=== PATIENT | female | born 1960 | race African-American/Black ===

== ENCOUNTER 2022-01-08 22:09 | Inpatient (IN) | payer MEDICAID, SELFPAY ==
[~2022-01-08] VITALS: Ht 167.6 cm; Wt 63.0 kg
[2022-01-08 22:09] VITALS: BP 118/64
[2022-01-08] MEDS ORDERED: PIPERACILLIN/TAZOBACTAM 3.375 GM in DEXTROSE 5% 50 ML IV ONE (22:25)
[2022-01-08] MEDS ORDERED: VANCOMYCIN 1,000 MG in DEXTROSE 5% 250 ML IV ONE (22:25)
[2022-01-08] MEDS ORDERED: NACL 0.9% 1,000 ML IV SCH (22:25)
--- NOTE | 2022-01-08 22:30 | NUR ---
received pt from EMS and placed to bed 10. pt is a 61 year old female with hx of trach dependence, anemia, sz, COPD, DM, a.fib, anoxic encep, hypothyroid, PEG tube coming [facility] for cc of fever and tachycardia since yesterday. pt is currently undergoing abx therapy at the facility with no relief. pt presents with orozco cath, and has been replaced for sterile urine collection. has PEG tube and intact. presents with upper respiratory wheezes. satting well at 99% on monitor at this time.
--- NOTE | 2022-01-08 22:32 | NUR ---
2220 RECEIVED PT FROM [facility] TRACH TO VENT. PATIENT IS ON PRVC RR 16 VT 300 PEEP 6 FIO2 50% ITIME 0.80. SXNED PT . [facility] AND DENISE USED.
[2022-01-08 22:35] VITALS: BP 126/61
[2022-01-08 22:59] LABS: HEMATOCRIT 24.5 % (36-48); MEAN CORPUSCULAR HEMOGLOBIN 28 pg (27-31); MEAN CORPUSCULAR HGB CONC 33 g/dL (33-37); MEAN CORPUSCULAR VOLUME 84.8 fL (80-94); PLATELET COUNT (AUTO) 326 K/uL (140-450); RED BLOOD CELL COUNT(AUTO) 2.89 MIL/uL (4.20-5.40); RED CELL DISTRIBUTION WIDTH 17.3 % (11.6-13.7)
[2022-01-08] MEDS ORDERED: VANCOMYCIN 1,000 MG VIAL ONE (23:01)
[2022-01-08] MEDS ORDERED: PIPERACILLIN/TAZOBACTAM 3.375 GM VIAL IV ONE (23:01)
[2022-01-08] MEDS ORDERED: BENZ-315 GT (23:02)
[2022-01-08] MEDS ORDERED: ALBU-118 INH (23:02)
[2022-01-08] MEDS ORDERED: FURO-570 GT (23:02)
[2022-01-08] MEDS ORDERED: DIGO0.122 GT (23:02)
[2022-01-08] MEDS ORDERED: VALP-22 GT (23:02)
[2022-01-08] MEDS ORDERED: [UNRECOGNIZED DRUG - CODE] GT (23:02)
[2022-01-08] MEDS ORDERED: FOLI1TAB90 GT (23:02)
[2022-01-08] MEDS ORDERED: LACT10SO40 GT (23:02)
[2022-01-08] MEDS ORDERED: ATOR40TA GT (23:02)
[2022-01-08] MEDS ORDERED: LAMO100T19 GT (23:02)
[2022-01-08] MEDS ORDERED: GABA400C GT (23:02)
[2022-01-08] MEDS ORDERED: INSU100S5 SUBQ (23:02)
[2022-01-08] MEDS ORDERED: LANTUS SUBQ (23:02)
[2022-01-08] MEDS ORDERED: SYN.05 GT (23:02)
[2022-01-08] MEDS ORDERED: LACT1CAP63 GT (23:02)
[2022-01-08] MEDS ORDERED: APIX5TAB GT (23:02)
[2022-01-08 23:04] LABS: WHITE BLOOD COUNT (AUTO) 31.6 K/uL (4.8-10.8)
[2022-01-08 23:15] LABS: PROTHROMBIN TIME 12.3 secs (10.8-13.4)
[2022-01-08 23:28] LABS: EOSINOPHILS % (MANUAL) 1 % (0-4); LYMPHOCYTES % (MANUAL) 2 % (20-46); MONOCYTES % (MANUAL) 2 % (5-12)
[2022-01-08 23:32] LABS: ALBUMIN 1.5 g/dL (3.4-5.0); CARBON DIOXIDE 36.9 mmol/L (21-32); CREATININE 0.6 mg/dL (0.6-1.3); POTASSIUM 3.9 mmol/L (3.5-5.1); TOTAL BILIRUBIN 0.4 mg/dL (0.0-1.0)
--- NOTE | 2022-01-08 23:50 | NUR ---
trach to vent settings; PRVC 28% 400vt 16 r 6 peep
--- NOTE | 2022-01-08 23:56 | NUR ---
covid swab collected.
--- NOTE | 2022-01-09 00:32 | NUR ---
notified Dr. Martinez of low MAP of pt. verbal of NS bolus extra.
[2022-01-09 00:33] LABS: APPEARANCE,URINE SL CLOUDY (CLEAR); BILIRUBIN,URINE NEGATIVE (NEGATIVE); BLOOD, URINE 2+ (NEGATIVE); COLOR,URINE YELLOW (YELLOW); LEUKOCYTE ESTERASE ,URINE TRACE (NEGATIVE); NITRITE, URINE NEGATIVE (NEGATIVE); PH,URINE 8.5 (5.0-9.0); UGLUCOSE NEGATIVE (NEGATIVE)
[2022-01-09] MEDS ORDERED: NACL 0.9% 1,000 ML IV STA (00:50)
[2022-01-09] MEDS ORDERED: NACL 0.9% 1,000 ML IV ONE (00:50)
[2022-01-09 00:57] LABS: RBC,URINE 20-50 /HPF (0-5)
[2022-01-09 00:58] LABS: WBC,URINE 20-60 /HPF (0-5)
--- NOTE | 2022-01-09 01:30 | NUR ---
presents with decubitis sacral ulcer and R LE excoriation. no camera present for wound pics at this time.
--- NOTE | 2022-01-09 01:36 | NUR ---
replaced pt linens and chucks. provided alexia and cleaned pt BM
[2022-01-09] MEDS ORDERED: DOCUSATE 100 MG/10 ML UDC GT PRN (02:40)
[2022-01-09] MEDS ORDERED: ONDANSETRON 4 MG/2 ML VIAL IM/IVP PRN (02:40)
[2022-01-09] MEDS ORDERED: ALBUTEROL SULFATE/IPRATROPIU 3 ML SOL IH PRN (02:40)
[2022-01-09] MEDS ORDERED: DEXTROSE 50% 50 ML SYR IVP PRN (02:40)
[2022-01-09] MEDS ORDERED: KCL 20 MEQ/WATER INJ PREMIX 100 ML IV PRN (02:40)
[2022-01-09] MEDS ORDERED: SODIUM PHOS / POTASSIUM PHOS 1 PKT PDR GT PRN (02:40)
[2022-01-09] MEDS ORDERED: MAGNESIUM OXIDE 400 MG TAB GT PRN (02:40)
[2022-01-09] MEDS ORDERED: MORPHINE SULFATE 2 MG/ML SYR IVP PRN (02:40)
[2022-01-09] MEDS ORDERED: HYDROcodone/APAP 5/325 MG 1 TAB TAB PO PRN (02:40)
--- NOTE | 2022-01-09 03:53 | NUR ---
Ceferino trujillo in EDM - 01/09/22 at 0355 by WILLIE PT TRANSPORTED TO CT AND BACK TO ED W/ NO ADVERSE EVENTS PT TOLERATED TRANSPORT WELL PT REPLACED BACK ON VENT AMBU RE-PLACED AT BEDSIDE VENT REMAINS PLUGGED INTO RED OUTLET W/ ALARMS ON AND AUDIBLE
--- NOTE | 2022-01-09 03:56 | NUR ---
PT TRANSPORTED TO CT AND BACK TO ED W/ NO ADVERSE EVENTS PT TOLERATED TRANSPORT WELL PT REPLACED BACK ON VENT AMBU RE-PLACED AT BEDSIDE VENT REMAINS PLUGGED INTO RED OUTLET W/ ALARMS ON AND AUDIBLE
[2022-01-09] MEDS: VALPROIC ACID 250 MG/5 ML UDC GT SCH ×3 (05:00→22:21)
--- NOTE | 2022-01-09 05:15 | NUR ---
pt remains on same vent settings. linens changed again per BM
[2022-01-09 07:10] VITALS: BP 108/48
[2022-01-09] MEDS: ALBUTEROL SULFATE/IPRATROPIU 3 ML SOL IH SCH ×3 (07:10→19:51)
[2022-01-09] MEDS: NACL 0.9% 1,000 ML IV SCH ×2 (07:12→21:58)
[2022-01-09] MEDS: LEVOTHYROXINE 0.05 MG TAB GT SCH (07:13)
--- NOTE | 2022-01-09 07:30 | NUR ---
RECEIVED REPORT FROM CIPRIANO GAO. ASSUMED CARE AT THIS TIME.
[2022-01-09] MEDS: BLOOD GLUCOSE MONITORING 1 DEV DEV FS SCH ×4 (07:39→22:16)
[2022-01-09] MEDS ORDERED: FOLIC ACID 1 MG TAB GT SCH (09:00)
--- NOTE | 2022-01-09 09:00 | NUR ---
PATIENT LAYING IN BED WITH EYES OPEN, TRACKING ME WHILE IN ROOM. ON BEDSIDE MIG WELDER, WILL CONTINUE TO MONITOR.
[2022-01-09] MEDS: LACTULOSE 20 GM/30 ML UDC GT SCH (09:29)
[2022-01-09] MEDS: BENZTROPINE 1 MG TAB GT SCH ×2 (09:30→22:22)
--- NOTE | 2022-01-09 09:30 | NUR ---
PATIENT HAS BEEN SCREENED AND CATEGORIZED HIGH NUTRITION RISK. PATIENT WILL BE SEEN WITHIN 1-2 DAYS OF ADMISSION. 01/09/22-01/10/22 CONSULT RECEIVED FOR TUBE FEEDING MARQUIS ALCANTAR RD
[2022-01-09] MEDS: GABAPENTIN 100 MG CAP GT SCH ×3 (09:31→17:16)
[2022-01-09] MEDS: FUROSEMIDE 40 MG TAB GT SCH (09:31)
[2022-01-09] MEDS: PANTOPRAZOLE 40 MG INJ VIAL IVP SCH (09:32)
[2022-01-09] MEDS: ASCORBIC ACID 500 MG/5 ML ORASYR GT SCH (09:32)
[2022-01-09] MEDS: DIGOXIN 0.125 MG TAB GT SCH (09:33)
[2022-01-09] MEDS: APIXABAN 2.5 MG TAB GT SCH ×2 (10:02→22:22)
[2022-01-09] MEDS: LACTOBACILLUS RHAMNOSUS GG 1 EACH CAP GT SCH (10:02)
[2022-01-09] MEDS: INSULIN LANTUS 100 UNITS/ML 10 ML VIAL SUBQ SCH ×2 (10:55→22:23)
--- NOTE | 2022-01-09 11:00 | NUR ---
800 CC OF DARK YELLOW URINE DRAINED FROM PATIENTS WEEKS BAG.
[2022-01-09 11:35] VITALS: BP 92/38
--- NOTE | 2022-01-09 11:56 | NUR ---
01/09/22 RD INITIAL ASSESSMENT COMPLETED PLEASE REFER TO NUTRITION ASSESSMENT UNDER CARE ACTIVITY FOR ESTIMATED NUTRITIONAL NEEDS. 1. RECOMMENDED GLUCERNA 1.2 WITH A GOAL RATE OF 50 ML/HR -FWF: 150 ML Q6H OR PER MD -START AT 20 ML/HR AND INCREASE BY 10 ML Q4H TOLERATED -WILL PROVIDE 1440 KCAL, 72 GM PROTEIN AND 1566 ML FREE WATER, MEETING ESTIMATED NUTRITION NEEDS 2. MONITOR NUTRITION-RELATED LABS AND GASTRIC RESIDUALS 3. RD TO FOLLOW-UP 2-3 DAYS, HIGH RISK DENNY ALCANTAR RD Addendum: 01/10/22 at [address] RECEIVED CONSULT FOR WOUNDS AND PRESSURE INJURY ON 01/10/22. WILL ADD DEACON BID PER RD PROTOCOL.
[2022-01-09 12:57] VITALS: BP 103/46
--- NOTE | 2022-01-09 13:15 | NUR ---
DR. QUESADA BEDSIDE EVALUATING PATIENT, GIVEN VERBAL ORDER TO INCREASE NS MAINTENANCE FLUIDS TO 100 ML/HR.
[2022-01-09 17:17] VITALS: BP 97/46
--- NOTE | 2022-01-09 17:48 | NUR ---
PATIENT LAYING IN BED WITH EYES OPEN, TRACKING ME WHILE IN ROOM. PATIENT ON SAME VENT SETTINGS, ON BEDSIDE IT ADMINISTRATOR, WILL CONTINUE TO MONITOR.
[2022-01-09 17:55] VITALS: BP 104/40
--- NOTE | 2022-01-09 18:33 | NUR ---
200cc OF DARK YELLOW URINE EMPTIED FROM PATIENTS WEEKS BAG.
--- NOTE | 2022-01-09 19:35 | NUR ---
Pt report given to CIPRIANO GAO. Transfer of care at this time.
--- NOTE | 2022-01-09 19:59 | NUR ---
report given to Jerica COTA.
[2022-01-09 22:01] VITALS: BP 99/41
[2022-01-09] MEDS: ATORVASTATIN 20 MG TAB GT SCH (22:22)
[2022-01-10] MEDS ORDERED: VANCOMYCIN PER PHARMACY MC PRN (00:35)
[2022-01-10 01:14] VITALS: BP 93/42
[2022-01-10] MEDS ORDERED: PIPERACILLIN/TAZOBACTAM 3.375 GM in DEXTROSE 5% 50 ML IV SCH (01:20)
[2022-01-10] MEDS ORDERED: PIPERACILLIN/TAZOBACTAM 3.375 GM VIAL IV ONE ×2 (01:20→05:17)
[2022-01-10 04:18] VITALS: BP 94/46
[2022-01-10] MEDS: BLOOD GLUCOSE MONITORING 1 DEV DEV FS SCH ×4 (05:15→20:14)
[2022-01-10] MEDS ORDERED: CRUSHER, PILL MC ONE (05:18)
[2022-01-10] MEDS: PIPERACILLIN/TAZOBACTAM 3.375 GM in DEXTROSE 5% 50 ML IV SCH ×4 (05:25→23:00)
[2022-01-10] MEDS: VALPROIC ACID 250 MG/5 ML UDC GT SCH ×3 (05:25→20:17)
[2022-01-10] MEDS: LEVOTHYROXINE 0.05 MG TAB GT SCH (05:35)
[2022-01-10] MEDS: ALBUTEROL SULFATE/IPRATROPIU 3 ML SOL IH SCH ×3 (07:15→19:50)
--- NOTE | 2022-01-10 07:30 | NUR ---
RECEIVED REPORT FROM ARTS THERAPIST NURSE. PT STABLE
[2022-01-10 07:54] LABS: ANION GAP 12.2 (8-16); CARBON DIOXIDE 25.5 mmol/L (21-32); CREATININE 0.5 mg/dL (0.6-1.3)
[2022-01-10 07:55] LABS: BASOPHILS % (AUTO) 0.1 % (0.0-2.0); EOSINOPHILS # (AUTO) 0.1 K/uL (0-0.4); EOSINOPHILS % (AUTO) 0.3 % (0.0-4.0); LYMPHOCYTES # (AUTO) 0.6 K/uL (2.5-16.5); LYMPHOCYTES % (AUTO) 4.1 % (20.5-51.1); MEAN CORPUSCULAR HEMOGLOBIN 28 pg (27-31); MEAN CORPUSCULAR HGB CONC 33 g/dL (33-37); MEAN CORPUSCULAR VOLUME 84.3 fL (80-94); MONOCYTES # (AUTO) 0.6 K/uL (0.8-1.0); MONOCYTES % (AUTO) 3.8 % (1.7-9.3); NEUTROPHILS # (AUTO) 14.5 K/uL (1.8-7.7); NEUTROPHILS % (AUTO) 91.7 % (42.2-75.2); PLATELET COUNT (AUTO) 273 K/uL (140-450); RED BLOOD CELL COUNT(AUTO) 2.36 MIL/uL (4.20-5.40); RED CELL DISTRIBUTION WIDTH 17.3 % (11.6-13.7); WHITE BLOOD COUNT (AUTO) 15.8 K/uL (4.8-10.8)
[2022-01-10 08:00] VITALS: BP 102/46
[2022-01-10 08:17] LABS: HEMATOCRIT 19.9 % (36-48); HEMOGLOBIN 6.5 g/dL (12.0-16.0)
[2022-01-10 08:27] LABS: POTASSIUM 2.7 mmol/L (3.5-5.1)
[2022-01-10] MEDS: LACTULOSE 20 GM/30 ML UDC GT SCH (08:52)
[2022-01-10] MEDS: PANTOPRAZOLE 40 MG INJ VIAL IVP SCH (08:52)
[2022-01-10] MEDS: FUROSEMIDE 40 MG TAB GT SCH (08:54)
[2022-01-10] MEDS: ASCORBIC ACID 500 MG/5 ML ORASYR GT SCH (08:54)
[2022-01-10] MEDS: LACTOBACILLUS RHAMNOSUS GG 1 EACH CAP GT SCH (08:54)
[2022-01-10] MEDS: GABAPENTIN 100 MG CAP GT SCH ×3 (08:54→17:00)
[2022-01-10] MEDS: FOLIC ACID 1 MG TAB GT SCH (08:55)
[2022-01-10] MEDS: APIXABAN 2.5 MG TAB GT SCH (08:56)
[2022-01-10] MEDS: INSULIN LANTUS 100 UNITS/ML 10 ML VIAL SUBQ SCH ×2 (08:56→20:15)
[2022-01-10] MEDS: DIGOXIN 0.125 MG TAB GT SCH (08:56)
[2022-01-10] MEDS: BENZTROPINE 1 MG TAB GT SCH ×2 (08:57→20:17)
[2022-01-10] MEDS: VANCOMYCIN 1,000 MG in DEXTROSE 5% 250 ML IV SCH (09:55)
--- NOTE | 2022-01-10 10:20 | NUR ---
PT STABLE. NO S/S OF DISTRESS. PT CLEANED AND CHANGED. BREATHING SYMMETRICAL. ALL SAFETY MEASURES IN PLACE
[2022-01-10 12:00] VITALS: BP 92/88
[2022-01-10] MEDS: NACL 0.9% 1,000 ML IV SCH ×2 (12:07→23:14)
--- NOTE | 2022-01-10 13:50 | NUR ---
PT STILL OFF TUBE FEEDING PER RADIOLOGY. RESIDUAL 0. BG 145, NO COVERAGE NEEDED.
[2022-01-10 16:00] VITALS: BP 91/44
--- NOTE | 2022-01-10 17:00 | NUR ---
PT CLEANED AND CHANGED. WOUND CARE PROVIDED. PT STABLE. ALL SAFETY MEASURES IN PLACE. PT RIGHT FOREARM IV PULLED OUT DURING RADIOLOGY PROCEDURE.
--- NOTE | 2022-01-10 19:11 | NUR ---
ENDORSED PT TO PRESTIDIGITATOR NURSE
--- NOTE | 2022-01-10 19:12 | NUR ---
RECEIVED BEDSIDE REPORT FROM DAY RN. PT IS APHASIC. OBSERVED LAYING IN BED WITH EYES OPEN NOT TRACKING NURSE. RESPIRATIONS ARE EQUAL AND UNLABORED ON TRACH TO VENT. VENT SETTINGS: AC/PRVC 28%,16, 400 +5 SAT WELL 99% HR 102. IV ON RW22G NS INFUSING AT 60ML/H AND R SOLER 20G SL. SKIN IS NOT INTACT SACRAL ULCER DRESSING IS C/D/I. R HEEL DTI GRAPHICS SOFTWARE ENGINEER. WEEKS IN PLACE DRAINING YELLOW URINE. PT ON GTUBE FEEDING INFUSING PER ORDERS. POC REVIEWED. PT UNABLE TO COMPREHEND. SAFETY MEASURES ARE IN PLACE. WILL CONTINUE TO MONITOR.
[2022-01-10 20:00] VITALS: BP 102/52
[2022-01-10] MEDS: INSULIN LISPRO SLIDING SCALE 100 UNITS/ML VIAL SUBQ PRN (20:16)
[2022-01-10] MEDS: ATORVASTATIN 20 MG TAB GT SCH (20:17)
--- NOTE | 2022-01-10 20:17 | NUR ---
PT WITH 5CC OF GASTRIC RESIDUALS. NICK MEDS GIVEN PER ORDERS. VSS. ORAL CARE PROVIDED BY RT STUDENT. BS 170 NICK LANTUS AND HUMALOG GIVEN PER SLIDING SCALE. ALL NEEDS MET. WILL CONTINUE TO MONITOR.
--- NOTE | 2022-01-10 21:00 | NUR ---
OBTAIN TELEPHONE CONSENT FROM HOMERO FRANCO PT'S BROTHER. VERIFIED WITH OTHER RN. ALL QUESTIONS AND CONCERNS ADDRESSED. PAGED DR QUESADA PER DOCTOR DOES NOT HAVE FAX ONLY DURING OFFICE HOURS. OK TO GIVE BLOOD TOMORROW AFTER OBTAINING CONSENT FROM .
--- NOTE | 2022-01-10 22:24 | NUR ---
PT OBSERVED RESTING IN BED WITH EYES CLOSED. NO S/SX OF DISTRESS. WILL CONTINUE TO MONITOR
[2022-01-10] MEDS ORDERED: POTASSIUM CHLORIDE 40 MEQ, LIDOCAINE MPF 1% 25 MG in NACL 0.9% 250 ML IV SCH (23:30)
--- NOTE | 2022-01-10 23:40 | NUR ---
PAGED DR QUESADA TO CLARIFY K RIDER ORDER. CURRENTLY PHARMACY NOT AVAILABLE TO MIX K RIDER WITH LIDOCAINE. PER MD ORDER ADDITIONAL 20 MEQ K RIDER X1. AND WILL REPEAT LABS IN AM.
[2022-01-10] MEDS ORDERED: KCL 20 MEQ/WATER INJ PREMIX 100 ML IV SCH (23:45)
[2022-01-11] VITALS (8 sets, daily range): BP systolic 96–119; BP diastolic 41–80
--- NOTE | 2022-01-11 00:38 | NUR ---
VITAL SIGNS ARE WITHIN NORMAL LIMITS. ALL NEEDS MET. CALL LIGHT IS WITHIN REACH. WILL CONTINUE TO MONITOR.
--- NOTE | 2022-01-11 02:08 | NUR ---
ROUNDS MADE. PT OBSERVED LAYING IN BED WITH EYES CLOSED APPEARS TO BE ASLEEP. CHEST RISE AND FALL NOTED. CALL LIGHT IS WITHIN REACH.
[2022-01-11] MEDS: VANCOMYCIN 1,000 MG in DEXTROSE 5% 250 ML IV SCH (03:31)
--- NOTE | 2022-01-11 04:00 | NUR ---
VITAL SIGNS ARE WITHIN NORMAL LIMITS. ORAL CARE PROVIDED. ALL SAFETY MEASURES ARE IN PLACE. WILL CONTINUE TO MONITOR.
[2022-01-11] MEDS: PIPERACILLIN/TAZOBACTAM 3.375 GM in DEXTROSE 5% 50 ML IV SCH ×2 (05:49→12:05)
[2022-01-11] MEDS: VALPROIC ACID 250 MG/5 ML UDC GT SCH ×3 (05:49→21:37)
[2022-01-11] MEDS: LEVOTHYROXINE 0.05 MG TAB GT SCH (05:50)
--- NOTE | 2022-01-11 06:28 | NUR ---
BS 127 NO COVERAGE NEEDED. PT WAS CLEANED AND REPOSITION FOR COMFORT WITH ASSISTANCE OF APARTMENT MAINTENANCE TECHNICIAN. WILL CONTINUE TO MONITOR.
[2022-01-11] MEDS: BLOOD GLUCOSE MONITORING 1 DEV DEV FS SCH ×4 (06:30→21:00)
--- NOTE | 2022-01-11 07:21 | NUR ---
PATIENT IS STABLE. WILL ENDORSE TO DAY RN.
--- NOTE | 2022-01-11 07:25 | NUR ---
RECEIVED BEDSIDE REPORT FROM RETAIL RECEIVING CLERK NURSE FOR CONTINUITY OF CARE. PT IS APHASIC. OBSERVED LAYING IN BED WITH EYES OPEN NOT TRACKING NURSE. RESPIRATIONS ARE EQUAL AND UNLABORED ON TRACH TO VENT. VENT SETTINGS: AC/PRVC 28%,16, 400 +5 SAT WELL 99%. IV ON LFA 18 NS INFUSING AT 60ML/H AND LH 20G SL. SKIN IS NOT INTACT SACRAL ULCER DRESSING IS C/D/I. R HEEL DTI IT INFRASTRUCTURE ARCHITECT. WEEKS IN PLACE DRAINING YELLOW URINE. TUBE FEEDING ON HOLD DUE TO SURGERY TODAY. POC REVIEWED. PT UNABLE TO COMPREHEND. SAFETY MEASURES ARE IN PLACE. WILL CONTINUE TO MONITOR.
[2022-01-11] MEDS: ALBUTEROL SULFATE/IPRATROPIU 3 ML SOL IH SCH ×3 (07:33→19:35)
[2022-01-11 07:59] LABS: CARBON DIOXIDE 26.6 mmol/L (21-32); CREATININE 0.6 mg/dL (0.6-1.3); POTASSIUM 3.6 mmol/L (3.5-5.1)
[2022-01-11] MEDS: BENZTROPINE 1 MG TAB GT SCH ×2 (08:08→21:36)
[2022-01-11] MEDS: LACTOBACILLUS RHAMNOSUS GG 1 EACH CAP GT SCH (08:08)
[2022-01-11] MEDS: LACTULOSE 20 GM/30 ML UDC GT SCH (08:08)
[2022-01-11] MEDS: DIGOXIN 0.125 MG TAB GT SCH (08:09)
[2022-01-11] MEDS: ASCORBIC ACID 500 MG/5 ML ORASYR GT SCH (08:09)
[2022-01-11] MEDS: FOLIC ACID 1 MG TAB GT SCH (08:09)
[2022-01-11] MEDS: GABAPENTIN 100 MG CAP GT SCH ×3 (08:09→16:15)
[2022-01-11] MEDS: FUROSEMIDE 40 MG TAB GT SCH (08:09)
[2022-01-11] MEDS: INSULIN LANTUS 100 UNITS/ML 10 ML VIAL SUBQ SCH ×2 (09:00→21:47)
[2022-01-11] MEDS: PANTOPRAZOLE 40 MG INJ VIAL IVP SCH (09:05)
--- NOTE | 2022-01-11 09:55 | NUR ---
ALL SCHEDULED MEDS GIVEN. PT IS STABLE. NO DISTRESS NOTED. WILL CONTINUE TO MONITOR.
--- NOTE | 2022-01-11 11:40 | NUR ---
BEGAN 1 UNIT OF BLOOD TRANSFUSION. PRE VITAL SIGNS STABLE. NO DISTRESS NOTED. WILL CONTINUE TO MONITOR.
--- NOTE | 2022-01-11 11:40 | NUR ---
WOUND CARE EVALUATION NOTE: SKIN ASSESSMENT DONE WITH THIS 61 Y/O PT. ADMITTED WITH MULTIPLE PRESSURE INJURY, PER PRIMARY RN, PT SCHEDULE FOR DEBRIDEMENT THIS AFTERNOON. POC DISCUSSED WITH PRIMARY RN. INTEGUMENTARY: TRACH AND G SITE VINAY-STOMA SKIN DRY AND INTACT. -PRESSURE INJURY SACRALCOCCYX STAGE 4 WITH [id number] 40% GRANULATING TISSUE, 60% SCATTER THIN MILLAN/YELLOW SLOUGH TISSUE TO WOUND BED, UNDERMINING TO 9-3 OCLOCK 0.5CM, WOUND EDGE FLAT, WOUND BED MODERATE AMOUNT PURULENT DRAINAGE, MILD ODOR, VINAY-WOUND SKIN MOIST, THIN AND EASILY TO TORN. -PRESSURE INJURY STAGE 2 TO RIGHT HEEL 2X2CM SUPERFICIAL DEPTH, WOUND BED 100% RED GRANULATING TISSUE ,NO ODOR, VINAY WOUND SKIN DRY CRACKING SKIN INDICATED FURTHER DAMAGE. RECOMMENDATIONS: -CLEANSE SACRALCOCCYX WITH NS, PAT DRY, PACK LOOSELY WITH ONE PIECE KERLIX ROLL MOIST WITH HYDROGEL TO UNDERMINING AND WOUND BED AND COVER WITH DRY DRESSING CHANGE DAILY AND PRN IF SOILING, OFFLOADING AREAS -CLEANSE RIGHT HEEL WITH NS, PAT DRY, APPLY ADAPTIC DRESSING AND COVER WITH FOAM DRESSING QD AND PRN IF SOILING -APPLY HYDRAGUARD TO GROINS AND PERINEUM BID -ASSESS AND MONITOR SKIN CONDITION DURING POSITION CHANGE -OFFLOAD BILATERAL HEELS BY PLACING PILLOWS UNDER CALVES AT ALL TIMES, UNLESS OTHERWISE CONTRAINDICATED -PRESSURE REDISTRIBUTION SURFACE AND OFFLOADING SACRALCOCCYX -KEEP SKIN CLEAN AND DRY AT ALL TIMES. -CONTINUE TO FOLLOW RD RECOMMENDATIONS
--- NOTE | 2022-01-11 12:02 | NUR ---
BLOOD GLUCOSE CHECK WAS 74. NO INSULIN COVERAGE NEEDED
[2022-01-11 15:26] LABS: BASOPHILS % (AUTO) 0.2 % (0.0-2.0); EOSINOPHILS # (AUTO) 0.4 K/uL (0-0.4); EOSINOPHILS % (AUTO) 2.3 % (0.0-4.0); HEMATOCRIT 23.1 % (36-48); HEMOGLOBIN 7.8 g/dL (12.0-16.0); LYMPHOCYTES # (AUTO) 0.9 K/uL (2.5-16.5); LYMPHOCYTES % (AUTO) 5.5 % (20.5-51.1); MEAN CORPUSCULAR HEMOGLOBIN 28 pg (27-31); MEAN CORPUSCULAR HGB CONC 34 g/dL (33-37); MEAN CORPUSCULAR VOLUME 83.7 fL (80-94); MONOCYTES # (AUTO) 0.5 K/uL (0.8-1.0); MONOCYTES % (AUTO) 3.5 % (1.7-9.3); NEUTROPHILS % (AUTO) 88.5 % (42.2-75.2); PLATELET COUNT (AUTO) 317 K/uL (140-450); RED BLOOD CELL COUNT(AUTO) 2.76 MIL/uL (4.20-5.40); RED CELL DISTRIBUTION WIDTH 16.9 % (11.6-13.7); WHITE BLOOD COUNT (AUTO) 15.8 K/uL (4.8-10.8)
--- NOTE | 2022-01-11 16:09 | NUR ---
01/11/22 RD F/U ASSESSMENT COMPLETED PLEASE REFER TO NUTRITION ASSESSMENT UNDER CARE ACTIVITY FOR ESTIMATED NUTRITIONAL NEEDS. 1. WHEN/IF MEDICALLY APPROPRIATE, CONTINUE GLUCERNA 1.2 WITH A GOAL RATE OF 50 ML/HR -FWF: 150 ML Q6 HR OR PER MD -WILL PROVIDE 1440 KCAL, 72 GM PROTEIN AND 1566 ML FREE WATER, MEETING ESTIMATED 98% OF KCAL NEEDS AND 97% OF PROTEIN NEEDS. 2. CONTINUE DEACON BID PER RD PROTOCOL. 3. MONITOR NUTRITION-RELATED LABS AND GASTRIC RESIDUALS 4. RD TO FOLLOW-UP 2-3 DAYS, HIGH RISK DARION BERG RD
--- NOTE | 2022-01-11 16:17 | NUR ---
BLOOD GLUCOSE CHECK WAS 94. NO INSULIN COVERAGE NEEDED
--- NOTE | 2022-01-11 17:20 | NUR ---
DR. STRONG AT PATIENT'S BEDSIDE.
--- NOTE | 2022-01-11 19:15 | NUR ---
DR. STRONG AT BEDSIDE BEGIN DEBRIDEMENT PROCEDURE.
[2022-01-11] MEDS ORDERED: LIDOCAINE MPF 1% 5 ML ONE (19:20)
[2022-01-11] MEDS ORDERED: LIDOCAINE 2% 1000 MG/50 ML VIAL INJ ONE (19:20)
[2022-01-11] MEDS ORDERED: LIDOCAINE MPF 1% 10 MG/ML VIAL INJ ONE (19:25)
--- NOTE | 2022-01-11 19:42 | NUR ---
ENDORSED TO DESIGN MAKER NURSE FOR CONTINUITY OF CARE. PT IS STABLE.
--- NOTE | 2022-01-11 19:45 | NUR ---
RECEIVED BEDSIDE REPORT FROM DAY SHIFT NURSE FOR CONTINUITY OF CARE. PT IS APHASIC. DR STRONG AT BEDSIDE, DEBRIDEMENT PROCEDURE ONGOING. RESPIRATIONS ARE EQUAL AND UNLABORED ON TRACH TO VENT. VENT SETTINGS: AC/PRVC 28%,16, 400 +5 SAT 100%. IV ON LHAND 20 NS INFUSING AT 60ML/H AND LFA G18 SL. WEEKS IN PLACE DRAINING YELLOW URINE. TUBE FEEDING ON HOLD DUE TO SURGERY TODAY. SAFETY MEASURES ARE IN PLACE. WILL CONTINUE TO MONITOR.
--- NOTE | 2022-01-11 21:00 | NUR ---
SCHEDULED MEDS GIVEN. PT IS STABLE. NO DISTRESS NOTED. WILL CONTINUE TO MONITOR.
[2022-01-11] MEDS: NACL 0.9% 1,000 ML IV SCH (21:20)
[2022-01-11] MEDS: MEROPENEM 1,000 MG in NACL 0.9% 50 ML IV SCH (21:36)
[2022-01-11] MEDS: ATORVASTATIN 20 MG TAB GT SCH (21:36)
[2022-01-12] VITALS (7 sets, daily range): BP systolic 115–153; BP diastolic 61–89
--- NOTE | 2022-01-12 | NUR ---
VITAL SIGNS ARE STABLE. ORAL CARE PROVIDED. ALL SAFETY MEASURES ARE IN PLACE. WILL CONTINUE TO MONITOR.
[2022-01-12] MEDS: HYDRAGUARD CREAM TP SCH ×2 (01:13→12:05)
--- NOTE | 2022-01-12 02:53 | NUR ---
PT ASLEEP. PT REPOSITIONED. PT TOLERATED WELL.BREATHING EQUAL AND UNLABORED. ALL PRECAUTIONS IN PLACE. WILL CONTINUE TO MONITOR.
[2022-01-12] MEDS: VALPROIC ACID 250 MG/5 ML UDC GT SCH ×3 (05:42→21:44)
[2022-01-12] MEDS: MEROPENEM 1,000 MG in NACL 0.9% 50 ML IV SCH ×3 (05:42→21:14)
[2022-01-12] MEDS: LEVOTHYROXINE 0.025 MG TAB GT SCH (05:42)
--- NOTE | 2022-01-12 05:45 | NUR ---
SCHEDULED MEDICATIONS GIVEN. PT TOLERATED WELL. ALL PRECAUTIONS IN PLACE. WILL CONTINUE TO MONITOR.
[2022-01-12] MEDS: BLOOD GLUCOSE MONITORING 1 DEV DEV FS SCH ×4 (06:23→21:28)
--- NOTE | 2022-01-12 06:37 | NUR ---
PT IS STABLE. NO ACUTE EVENTS THROUGHOUT THE NIGHT. NO S/SX OF DISTRESS OF THIS MOMENT. DENIES PAIN. ALL NEEDS ATTENDED. CALL LIGHT WITHIN REACH. ALL SAFETY PRECAUTIONS IN PLACE.WILL ENDORSE TO AM SHIFT NURSE.
[2022-01-12] MEDS: ALBUTEROL SULFATE/IPRATROPIU 3 ML SOL IH SCH ×3 (07:26→19:00)
--- NOTE | 2022-01-12 07:26 | NUR ---
RECEIVED ON A [employer] R860 VENTILATOR WITH COMPRESSOR ON PLUGGED INTO RED OUTLET TOLERATING WELL WITHOUT ADVERSE REACTIONS NOTED TO A PORTEX DCT #8 AIRWAY SECURED WITH A EDGAR TRACH TIE CUFF PRESSURE CHECKED NOTED AMBU BAG AT BEDSIDE LOC AWAKE EQUAL CHEST RISE DEEP TRACHEAL SUCTION FOR COPIOUS SEMI THICK PALE YELLOW SECRETIONS AIRWAY PATENT
--- NOTE | 2022-01-12 07:40 | NUR ---
RECEIVED BEDSIDE REPORT FROM PRODUCTION REPAIRER NURSE FOR CONTINUITY OF CARE. PT IS APHASIC. OBSERVED LAYING IN BED WITH EYES OPEN NOT TRACKING NURSE. RESPIRATIONS ARE EQUAL AND UNLABORED ON TRACH TO VENT. VENT SETTINGS: AC/PRVC 28%,16, 400 +5 SAT WELL 99%. IV ON LFA 18 NS INFUSING AT 60ML/H AND LH 20G SL. SKIN IS NOT INTACT. S/P DEBRIDEMENT ON SACRAL ULCER. SACRAL ULCER DRESSING IS C/D/I. R HEEL DTI MENG. WEEKS IN PLACE DRAINING YELLOW URINE. POC REVIEWED. PT UNABLE TO COMPREHEND. SAFETY MEASURES ARE IN PLACE. WILL CONTINUE TO MONITOR.
[2022-01-12] MEDS: ASCORBIC ACID 500 MG/5 ML ORASYR GT SCH (09:00)
[2022-01-12] MEDS: FOLIC ACID 1 MG TAB GT SCH (09:00)
[2022-01-12] MEDS: LACTOBACILLUS RHAMNOSUS GG 1 EACH CAP GT SCH (09:00)
[2022-01-12] MEDS: FUROSEMIDE 40 MG TAB GT SCH (09:00)
[2022-01-12] MEDS: GABAPENTIN 100 MG CAP GT SCH ×3 (09:00→17:15)
[2022-01-12] MEDS: LACTULOSE 20 GM/30 ML UDC GT SCH (09:00)
[2022-01-12] MEDS: INSULIN LANTUS 100 UNITS/ML 10 ML VIAL SUBQ SCH ×2 (09:00→21:00)
[2022-01-12] MEDS: DIGOXIN 0.125 MG TAB GT SCH (09:00)
[2022-01-12] MEDS: BENZTROPINE 1 MG TAB GT SCH ×2 (09:00→21:44)
--- NOTE | 2022-01-12 09:30 | NUR ---
CHECKED ON PT. PT IS STABLE. NO DISTRESS NOTED. WILL CONTINUE TO MONITOR.
[2022-01-12] MEDS: PANTOPRAZOLE 40 MG INJ VIAL IVP SCH (09:45)
--- NOTE | 2022-01-12 10:51 | NUR ---
RESTING WELL GOOD CHEST RISE AIRWAY PATENT
--- NOTE | 2022-01-12 10:52 | NUR ---
RT AT BEDSIDE
[2022-01-12] MEDS: NON ADHERENT DRESSING TP SCH (12:05)
[2022-01-12] MEDS: SKINTEGRITY HYDROGEL TP SCH (12:05)
--- NOTE | 2022-01-12 12:22 | NUR ---
BLOOD GLUCOSE IS 78. NO INSULIN COVERAGE NEEDED
--- NOTE | 2022-01-12 13:25 | NUR ---
RT AT BEDSIDE.
--- NOTE | 2022-01-12 13:26 | NUR ---
RESTING COMFORTABLY GOOD CHEST RISE DEEP TRACHEAL SUCTION FOR LARGE SEMI THICK PALE YELLOW SECRETIONS AIRWAY PATENT
[2022-01-12] MEDS: NACL 0.9% 1,000 ML IV SCH (13:41)
--- NOTE | 2022-01-12 17:15 | NUR ---
BLOOD SUGAR CHECK WAS 80. NO INSULIN COVERAGE NEEDED.
--- NOTE | 2022-01-12 19:38 | NUR ---
ENDORSED TO LICENSED NUCLEAR CONTROL ROOM OPERATOR NURSE FOR CONTINUITY OF CARE. PT IS STABLE
--- NOTE | 2022-01-12 19:39 | NUR ---
RECEIVED REPORT FROM DAY SHIFT NURSE FOR CONTINUITY OF CARE.PT IS STABLE.
--- NOTE | 2022-01-12 21:00 | NUR ---
[facility] MED ADMINISTRATION PER MD ORDER. PT TOLERATED MEDS WELL. NO RESIDUAL NOTED. FLUSHED WITH 10CC BEFORE AND AFTER ADMINISTRATION. ORAL CARE PERFORMED. BS= 92 NO INSULIN COVERAGE NEEDED. PT REPOSITIONED. ALL SAFETY MEASURES IN PLACE.
[2022-01-12] MEDS: ATORVASTATIN 20 MG TAB GT SCH (21:44)
[2022-01-13] MEDS: HYDRAGUARD CREAM TP SCH ×2 (00:26→12:10)
[2022-01-13 01:00] VITALS: BP 129/64
[2022-01-13 04:00] VITALS: BP 129/64
[2022-01-13] MEDS: MEROPENEM 1,000 MG in NACL 0.9% 50 ML IV SCH ×3 (04:10→21:22)
[2022-01-13] MEDS: VALPROIC ACID 250 MG/5 ML UDC GT SCH ×3 (04:10→21:37)
--- NOTE | 2022-01-13 05:20 | NUR ---
LAB UNABLE TO DRAW AM LABS AFTER 3 TRIES. BOTH HANDS ARE SWOLLEN. LEGS CONTRACTED. ENDORSE TO DAY SHIFT NURSE TO FOLLOW UP WITH DR QUESADA ABOUT A MIDLINE PLACEMENT?
[2022-01-13] MEDS: NACL 0.9% 1,000 ML IV SCH ×2 (06:40→23:20)
[2022-01-13] MEDS: BLOOD GLUCOSE MONITORING 1 DEV DEV FS SCH ×4 (06:48→21:21)
[2022-01-13] MEDS: LEVOTHYROXINE 0.025 MG TAB GT SCH (06:59)
[2022-01-13] MEDS: ALBUTEROL SULFATE/IPRATROPIU 3 ML SOL IH SCH ×3 (07:00→20:10)
--- NOTE | 2022-01-13 07:00 | NUR ---
RECEIVED ON A [employer] R860 VENTILATOR PLUGGED INTO RED OUTLET TOLERATING WELL WITHOUT COMPLICATIONS NOTED TO A PORTEX DCT #8 AIRWAY SECURED WITH A EDGAR TRACH TIE CUFF PRESSURE CHECKED NOTED AMBU BAG AT BEDSIDE RESTING COMFORTABLY EQUAL CHEST RISE DEEP TRACHEAL SUCTION FOR LARGE SEMI THICK YELLOW SECRETIONS AIRWAY PATENT
--- NOTE | 2022-01-13 07:29 | NUR ---
ENDORSED PT REPORT TO AM NURSE FOR CONTINUITY OF CARE. BS= 130 NO INSULIN COVERAGE NEEDED. ALL SAFETY MEASURES IN PLACE.
--- NOTE | 2022-01-13 07:30 | NUR ---
RECEIVED REPORT FROM BATT MACHINE OPERATOR NURSE FOR CONTINUITY OF CARE, POC DISCUSSED. RT AT BEDSIDE, STABLE TRACH TO VENT SATING AT 99%. PT ON TELE MONITOR SHOWING SR. PT HAS A WEEKS. S/P DEBRIDEMENT OF SACRAL WOUND ON BY DR STRONG. RUNNING NS @60 ON LEFT HAND 20G. ALL SAFETY MEASURES IN PLACE, CALL LIGHT WITHIN REACH. WILL CONTINUE TO MONITOR.
[2022-01-13 08:00] VITALS: BP 115/59
[2022-01-13] MEDS: GABAPENTIN 100 MG CAP GT SCH ×3 (09:02→16:50)
[2022-01-13] MEDS: LACTOBACILLUS RHAMNOSUS GG 1 EACH CAP GT SCH (09:02)
[2022-01-13] MEDS: FUROSEMIDE 40 MG TAB GT SCH (09:02)
[2022-01-13] MEDS: ASCORBIC ACID 500 MG/5 ML ORASYR GT SCH (09:03)
[2022-01-13] MEDS: BENZTROPINE 1 MG TAB GT SCH ×2 (09:03→21:37)
[2022-01-13] MEDS: FOLIC ACID 1 MG TAB GT SCH (09:03)
[2022-01-13] MEDS: DIGOXIN 0.125 MG TAB GT SCH (09:03)
[2022-01-13] MEDS: PANTOPRAZOLE 40 MG INJ VIAL IVP SCH (09:04)
[2022-01-13] MEDS: INSULIN LANTUS 100 UNITS/ML 10 ML VIAL SUBQ SCH ×2 (09:05→21:33)
[2022-01-13] MEDS: LACTULOSE 20 GM/30 ML UDC GT SCH (09:06)
--- NOTE | 2022-01-13 09:30 | NUR ---
NICK MEDICATION ADMINISTERED PER MD ORDER, PT TOLERATED ADMINISTRATION. NO RESIDUAL NOTED, FLUSHED WITH 10CC PRIOR TO AND AFTER ADMINISTRATION. ORAL CARE PREFORMED. PT REPOSITIONED. ALL SAFETY MEASURES IN PLACE, CALL LIGHT WITHIN REACH. WILL CONTINUE TO MONITOR.
--- NOTE | 2022-01-13 10:27 | NUR ---
CALLED LAB IN REGARDS TO NEEDING AM LAB DRAW, STATED THEY WILL BE HERE [facility]
--- NOTE | 2022-01-13 11:15 | NUR ---
STABLE GOOD CHEST RISE DEEP TRACHEAL SUCTION FOR LARGE THICK YELLOW/GREEN SECRETIONS AIRWAY PATENT
[2022-01-13 12:00] VITALS: BP 112/60
--- NOTE | 2022-01-13 12:00 | NUR ---
NICK MEDICATION ADMINISTERED PER MD ORDER, PT TOLERATED ADMINISTRATION. BLOOD GLUCOSE IS 172, 2 UNITS OF INSULIN ADMINISTERED PER MD ORDER. PT HAS BEEN CLEANED AND REPOSITIONED. SMEAR BM NOTED. DRESSING CHANGE COMPLETED PER WOUND CARE ORDER. ALL SAFETY MEASURES IN PLACE. CALL LIGHT WITHIN REACH. WILL CONTINUE TO MONTIOR.
[2022-01-13] MEDS: SKINTEGRITY HYDROGEL TP SCH (12:10)
[2022-01-13] MEDS: NON ADHERENT DRESSING TP SCH (12:10)
[2022-01-13] MEDS: INSULIN LISPRO SLIDING SCALE 100 UNITS/ML VIAL SUBQ PRN (12:14)
--- NOTE | 2022-01-13 13:48 | NUR ---
RESTING WELL EQUAL CHEST RISE DEEP TRACHEAL SUCTION FOR LARGE THIN YELLOW SECRETIONS AIRWAY PATENT
[2022-01-13 14:16] LABS: BASOPHILS # (AUTO) 0.1 K/uL (0.00-0.22); BASOPHILS % (AUTO) 0.4 % (0.0-2.0); EOSINOPHILS % (AUTO) 0.3 % (0.0-4.0); HEMATOCRIT 21.5 % (36-48); LYMPHOCYTES # (AUTO) 0.7 K/uL (2.5-16.5); LYMPHOCYTES % (AUTO) 4.7 % (20.5-51.1); MEAN CORPUSCULAR HEMOGLOBIN 28 pg (27-31); MEAN CORPUSCULAR HGB CONC 33 g/dL (33-37); MEAN CORPUSCULAR VOLUME 84.6 fL (80-94); MONOCYTES # (AUTO) 0.6 K/uL (0.8-1.0); MONOCYTES % (AUTO) 4.2 % (1.7-9.3); NEUTROPHILS # (AUTO) 12.5 K/uL (1.8-7.7); NEUTROPHILS % (AUTO) 90.4 % (42.2-75.2); PLATELET COUNT (AUTO) 298 K/uL (140-450); RED BLOOD CELL COUNT(AUTO) 2.54 MIL/uL (4.20-5.40); RED CELL DISTRIBUTION WIDTH 16.9 % (11.6-13.7); WHITE BLOOD COUNT (AUTO) 13.8 K/uL (4.8-10.8)
--- NOTE | 2022-01-13 14:30 | NUR ---
LAB CALLED REPORTING HGB IS 7, NOTIFIED MD, NO NEW ORDERS RECEIVED.
[2022-01-13 16:00] VITALS: BP 114/57
--- NOTE | 2022-01-13 17:50 | NUR ---
PT BLOOD GLUCOSE IS 107, NO INSULIN NEEDED PER SLIDING SCALE. PT NICK MEDICATION ADMINISTERED PER MD ORDER ORDER. SUCTIONING PREFORMED. ORAL CARE PROVIDED. ALL SAFETY MEASURES IN PLACE, CALL LIGHT WITHIN REACH. WILL CONTINUE TO MONITOR.
--- NOTE | 2022-01-13 18:22 | NUR ---
ALL NEEDS HAVE BEEN MET THROUGHOUT SHIFT. PT CARE WILL BE ENDORSED TO INSTALLATIONS INSPECTOR. ALL SAFETY MEASURES AND CALL LIGHT IN PLACE.
--- NOTE | 2022-01-13 19:00 | NUR ---
RECEIVED PT REPORT FROM AM RN FOR CONTINUITY OF CARE. POC DISCUSSED. PT REMAINS ON TRAVH TO VENTSATING AT97%. PT ON TELE MONITOR SHOWING SR. PT HAS A WEEKS. IVF NS @60CC/HR ON L HAND. CALL LIOGHT WITHIN REACH WILL CONTINUE TO MONITOR.
[2022-01-13 20:00] VITALS: BP 104/49
--- NOTE | 2022-01-13 21:00 | NUR ---
HS MEDS GIVEN VIA G-TUBE. PT TOLERATED IT WELL. NO RESIDUAL. T- 99.1 SKIN HOT. COOLING MEASURES IMPLEMENTED: ICE PACKS,AND COOL COMPRESSES APPLIED. TYLENOL 650MG GIVEN VIA G-TUBE. 00:00 T- 97.9. ALL SAFETY MEASURES IN PLACE, CONTINUE TO OBSERVE.
[2022-01-13] MEDS: ATORVASTATIN 20 MG TAB GT SCH (21:37)
[2022-01-13] MEDS: ACETAMINOPHEN 325 MG TAB PO PRN (21:38)
[2022-01-14] VITALS: BP 97/48
[2022-01-14] MEDS: HYDRAGUARD CREAM TP SCH ×2 (01:00→13:53)
--- NOTE | 2022-01-14 01:00 | NUR ---
WD CARE DONE TO STAGE IV SACRAL /COCCYX WD.PACKED WET TO DRY WITH HYDROGEL SOAKED GAUZE PER WD CARE ORDERS.TURNED AND REPOSITIONED EVERY 2 HRS. MOUTH CARE DONE SUCTIONED SMALL AMOUNT OF THICK CLEAR MUCCUS. AFTERWARDS PT YAWNED. ALL SAFETY MEASURES IN PLACE. CONTINUE TO OBSERVE.
[2022-01-14] MEDS: VALPROIC ACID 250 MG/5 ML UDC GT SCH ×3 (04:44→20:34)
[2022-01-14] MEDS: MEROPENEM 1,000 MG in NACL 0.9% 50 ML IV SCH ×3 (04:44→20:34)
[2022-01-14] MEDS: LEVOTHYROXINE 0.025 MG TAB GT SCH (06:52)
[2022-01-14] MEDS: BLOOD GLUCOSE MONITORING 1 DEV DEV FS SCH ×4 (06:52→20:33)
[2022-01-14 06:56] VITALS: BP 116/62
--- NOTE | 2022-01-14 07:00 | NUR ---
BS= 138 NO COVERAGE NEEDED. ENDORSE TO AM NURSE PT REPORT FOR CONTINUITY OF CARE.
[2022-01-14] MEDS: ALBUTEROL SULFATE/IPRATROPIU 3 ML SOL IH SCH ×3 (07:11→19:00)
--- NOTE | 2022-01-14 07:11 | NUR ---
RECEIVED ON A GE CARESCAPE R860 WITH COMPRESSOR ON PLUGGED INTO RED OUTLET TOLERATING WELL WITHOUT ADVERSE REACTIONS NOTED TO A PORTEX DCT #8 AIRWAY SECURED WITH A EDGAR TRACH TIE CUFF PRESSURE CHECKED NOTED AMBU BAG AT BEDSIDE GOOD CHEST RISE DEEP TRACHEAL SUCTION FOR MODERATE SEMI THICK YELLOW SECRETIONS AIRWAY PATENT
--- NOTE | 2022-01-14 07:30 | NUR ---
RECEIVED BEDSIDE REPORT FROM FLIGHT TEST SUPERVISOR NURSE FOR CONTINUITY OF CARE. PT IS APHASIC. EYES OPEN NOT TRACKING NURSE. RESPIRATIONS ARE EQUAL AND UNLABORED ON TRACH TO VENT. VENT SETTINGS: AC/PRVC 24%,16, 400 +5. IV ON LFA 18 NS INFUSING AT 60ML/H AND LH 20G SL. SKIN IS NOT INTACT. S/P DEBRIDEMENT ON SACRAL ULCER. R HEEL DTI MENG. WEEKS IN PLACE DRAINING YELLOW URINE. POC REVIEWED. PT UNABLE TO COMPREHEND. SAFETY MEASURES ARE IN PLACE. WILL CONTINUE TO MONITOR
[2022-01-14 07:35] LABS: BASOPHILS # (AUTO) 0.1 K/uL (0.00-0.22); BASOPHILS % (AUTO) 0.4 % (0.0-2.0); EOSINOPHILS # (AUTO) 0.1 K/uL (0-0.4); EOSINOPHILS % (AUTO) 0.8 % (0.0-4.0); HEMATOCRIT 21.7 % (36-48); LYMPHOCYTES % (AUTO) 7.1 % (20.5-51.1); MEAN CORPUSCULAR HEMOGLOBIN 28 pg (27-31); MEAN CORPUSCULAR HGB CONC 32 g/dL (33-37); MEAN CORPUSCULAR VOLUME 85.6 fL (80-94); MONOCYTES # (AUTO) 0.7 K/uL (0.8-1.0); MONOCYTES % (AUTO) 5.3 % (1.7-9.3); NEUTROPHILS # (AUTO) 12.1 K/uL (1.8-7.7); NEUTROPHILS % (AUTO) 86.4 % (42.2-75.2); PLATELET COUNT (AUTO) 323 K/uL (140-450); RED BLOOD CELL COUNT(AUTO) 2.54 MIL/uL (4.20-5.40); RED CELL DISTRIBUTION WIDTH 17.1 % (11.6-13.7)
[2022-01-14 08:00] VITALS: BP 111/62
[2022-01-14 08:33] LABS: ANION GAP 14.9 (8-16); CARBON DIOXIDE 22.4 mmol/L (21-32); CREATININE 0.6 mg/dL (0.6-1.3); POTASSIUM 3.3 mmol/L (3.5-5.1)
[2022-01-14] MEDS: PANTOPRAZOLE 40 MG INJ VIAL IVP SCH (09:00)
[2022-01-14] MEDS: ASCORBIC ACID 500 MG/5 ML ORASYR GT SCH (09:00)
[2022-01-14] MEDS: FUROSEMIDE 40 MG TAB GT SCH (09:00)
[2022-01-14] MEDS: DIGOXIN 0.125 MG TAB GT SCH (09:00)
[2022-01-14] MEDS: BENZTROPINE 1 MG TAB GT SCH ×2 (09:00→20:33)
[2022-01-14] MEDS: LACTOBACILLUS RHAMNOSUS GG 1 EACH CAP GT SCH (09:00)
[2022-01-14] MEDS: LACTULOSE 20 GM/30 ML UDC GT SCH (09:00)
[2022-01-14] MEDS: INSULIN LANTUS 100 UNITS/ML 10 ML VIAL SUBQ SCH ×2 (09:00→20:38)
[2022-01-14] MEDS: FOLIC ACID 1 MG TAB GT SCH (09:00)
[2022-01-14] MEDS: GABAPENTIN 100 MG CAP GT SCH ×3 (09:00→16:35)
--- NOTE | 2022-01-14 09:40 | NUR ---
DUE MEDS GIVE. ORAL CARE AND WEEKS CARE DONE. TURNED AND REPOSITIONED
--- NOTE | 2022-01-14 10:28 | NUR ---
RESTING COMFORTABLY GOOD CHEST RISE DEEP TRACHEAL SUCTION FOR LARGE SEMI THICK YELLOW SECRETIONS AIRWAY PATENT
--- NOTE | 2022-01-14 11:10 | NUR ---
PT IN BED, FLACC 0, NO APPARENT DISTRESS
[2022-01-14 12:00] VITALS: BP 115/80
--- NOTE | 2022-01-14 13:30 | NUR ---
STABLE GOOD CHEST RISE DEEP TRACHEAL SUCTION FOR LARGE THIN PALE YELLOW SECRETIONS AIRWAY PATENT
[2022-01-14] MEDS: SKINTEGRITY HYDROGEL TP SCH (13:53)
[2022-01-14] MEDS: NON ADHERENT DRESSING TP SCH (13:53)
--- NOTE | 2022-01-14 14:03 | NUR ---
WOUND CARE AND VINAY CARE DONE. TURNED AND REPOSITIONED
--- NOTE | 2022-01-14 15:29 | NUR ---
01/14/22 RD FOLLOW UP COMPLETED PLEASE REFER TO NUTRITION ASSESSMENT UNDER CARE ACTIVITY FOR ESTIMATED NUTRITIONAL NEEDS. 1. CONTINUE GLUCERNA 1.2 WITH A GOAL RATE OF 50 ML/HR -FWF: 50 ML Q6 HR OR PER MD -WILL PROVIDE 1440 KCAL AND 72 GM PROTEIN, MEETING ESTIMATED 98% OF KCAL NEEDS AND 97% OF PROTEIN NEEDS 2. CONTINUE DEACON BID PER RD PROTOCOL 3. MONITOR NUTRITION-RELATED LABS AND GASTRIC RESIDUALS 4. RD TO FOLLOW UP 3-5 DAYS, MODERATE RISK MARQUIS ALCANTAR RD
--- NOTE | 2022-01-14 15:44 | NUR ---
DC [age]ANN[age] YRS OLD FEMALE PATIENT WAS ADMITTED FROM [facility] WITH A DX OF UTI AND PNA. PATIENT HAS A HX OF TRACH TO VENT, SEIZURE A-FIB AND ANEMIA, G-TUBE. H/H 6.5 TRANSFUSED 2 UNIT PRBC. ADMINISTERED IVF, IV ABX MEROPENEM AND CONTINUED HOME MEDS. CONSULTED WITH ID, GI, PULMO AND SURGEON FOR DEBRIDEMENT OF SACRAL DECUB. DC PLAN TO RETURN TO [facility] WHEN STABLE. CM TO FOLLOW Addendum: 01/15/22 at 1553 by Kelsey Villalta RN DC PLANNING: CONTINUE IV ABX MEROPENEM, ID AND PULMO SEEN PATIENT. AWAITING FOR GI CONSULT, H/H 6.7 ORDERED 1 UNIT PRBC AND FERRLECIT IV. CALLED [facility] SPOKE WITH REX PATIENT CAN GO TO ROOM 119C WHEN STABLE CM TO FOLLOW Addendum: 01/16/22 at 1152 by Kelsey Villalta RN DC PLANNING: PATIENT IS GOING BACK TO [facility] ROOM 119C # [phone] TO GIVE REPORT ARRANGE TRANSPORT WITH [facility] WITH RT VOTING MACHINE REPAIRER TIME 2 PM NOTIFIED LATOSHA COTA. CUONG TO FOLLOW
[2022-01-14] MEDS: SODIUM FERRIC GLUCONATE 125 MG in NACL 0.9% 100 ML IV SCH (15:59)
[2022-01-14 16:00] VITALS: BP 109/48
[2022-01-14] MEDS: NACL 0.9% 1,000 ML IV SCH (16:06)
--- NOTE | 2022-01-14 16:30 | NUR ---
BLOOD SUGAR 144, NO COVERAGE NEEDED
--- NOTE | 2022-01-14 17:47 | NUR ---
STABLE GOOD CHEST RISE DEEP TRACHEAL SUCTION FOR COPIOUS THIN PALE YELLOW SECRETIONS AIRWAY PATENT
--- NOTE | 2022-01-14 18:28 | NUR ---
PT RESTING IN BED, FLACC 0, NO SOB, AFEBRILE
--- NOTE | 2022-01-14 19:10 | NUR ---
PATIENT RESTING IN BED WITH EYES CLOSED, CHEST RISE AND FALL NOTED. TRACH TO VENT FIO2 24% WITH OXYGEN SATURATION 98%. HOB ELEVATED 40DEGREES. G TUBE FEEDING RUNNING GLUCERNA AT 50ML/HR WITH 50ML/6HR FLUSH, NO RESIDUAL NOTED. NEW GLUCERNA FEEDING REPLACED. PATIENT TURNED TO RIGHT SIDE. WILL CONTINUE TO MONITOR.
[2022-01-14 20:00] VITALS: BP 103/59
[2022-01-14] MEDS: ATORVASTATIN 20 MG TAB GT SCH (20:34)
[2022-01-14] MEDS: ACETAMINOPHEN 325 MG TAB PO PRN (20:38)
[2022-01-15] VITALS (8 sets, daily range): BP systolic 104–142; BP diastolic 50–95
[2022-01-15] MEDS: HYDRAGUARD CREAM TP SCH ×2 (01:34→12:35)
[2022-01-15] MEDS: MEROPENEM 1,000 MG in NACL 0.9% 50 ML IV SCH ×3 (05:09→20:58)
[2022-01-15] MEDS: VALPROIC ACID 250 MG/5 ML UDC GT SCH ×3 (05:09→20:57)
[2022-01-15] MEDS: LEVOTHYROXINE 0.025 MG TAB GT SCH (05:12)
[2022-01-15] MEDS: ALBUTEROL SULFATE/IPRATROPIU 3 ML SOL IH SCH ×3 (07:20→19:20)
--- NOTE | 2022-01-15 07:20 | NUR ---
RECEIVED ON A [employer] CARESCAPE R860 VENTILATOR PLUGGED INTO RED OUTLET TOLERATING WELL WITHOUT ADVERSE REACTIONS NOTED TO A PORTEX DCT#8 AIRWAY SECURED WTIH A EDGAR TRACH TIE CUFF PRESSURE CHECKED NOTE AMBU BAG AT BEDSIDE RESTING COMFORTABLY GOOD CHEST RISE DEEP TRACHEAL SUCTION FOR LARGE THICK YELLOW/GTEEN SECRETIONS AIRWA PATENT
[2022-01-15] MEDS: BLOOD GLUCOSE MONITORING 1 DEV DEV FS SCH ×4 (07:30→20:57)
--- NOTE | 2022-01-15 07:30 | NUR ---
RECEIVED BEDSIDE REPORT FROM LEAD INSTALLER NURSE FOR CONTINUITY OF CARE. PT IS APHASIC. OPENS EYES BUT DOES NOT TRACK. ON TELE MONITOR. TRACH TO VENT WITH O2 SAT 96%. G TUBE IN PLACE INFUSING FEEDING ORDERED. WEEKS CATH IN PLACE. SKIN IS WARM AND DRY. SACRAL WOUND AND LEFT HEEL DTI WITH DRESSING IN PLACE. IV IN THE LEFT FA 18 GAUGE AND LEFT HAND 20 GAUGE RUNNING FLUIDS. PT IS STABLE. PLAN OF CARE DISCUSSED.
[2022-01-15] MEDS: NACL 0.9% 1,000 ML IV SCH (08:40)
[2022-01-15] MEDS: INSULIN LANTUS 100 UNITS/ML 10 ML VIAL SUBQ SCH ×2 (09:00→21:00)
--- NOTE | 2022-01-15 09:15 | NUR ---
PT IS STABLE. REPOSITIONED AND BED BATH PROVIDED. DIAPER WAS CHANGED. WEEKS CATH IN PLACE. G TUBE IN PLACE INFUSING FEEDING. RESIDUAL WAS LESS THAN 5 ML. TOLERATING FEEDING WELL. DRESSING ON SACRAL DRY AND INTACT. WILL CHANGE PER PROTOCOL. NO RESP. DISTRESS NOTED. WILL CONTINUE TO MONITOR.
[2022-01-15] MEDS: FUROSEMIDE 40 MG TAB GT SCH (09:29)
[2022-01-15] MEDS: DIGOXIN 0.125 MG TAB GT SCH (09:30)
[2022-01-15] MEDS: BENZTROPINE 1 MG TAB GT SCH ×2 (09:30→20:57)
[2022-01-15] MEDS: FOLIC ACID 1 MG TAB GT SCH (09:30)
[2022-01-15] MEDS: LACTOBACILLUS RHAMNOSUS GG 1 EACH CAP GT SCH (09:30)
[2022-01-15] MEDS: PANTOPRAZOLE 40 MG INJ VIAL IVP SCH (09:31)
[2022-01-15] MEDS: LACTULOSE 20 GM/30 ML UDC GT SCH (09:31)
[2022-01-15] MEDS: GABAPENTIN 100 MG CAP GT SCH ×3 (09:31→16:40)
[2022-01-15] MEDS: ASCORBIC ACID 500 MG/5 ML ORASYR GT SCH (09:31)
--- NOTE | 2022-01-15 09:59 | NUR ---
[facility] 10 UNITS SUBQ HELD ORDERED FOR BLOOD GLUCOSE LEVEL OF 89.
[2022-01-15 10:13] LABS: ANION GAP 12.6 (8-16); CARBON DIOXIDE 22.7 mmol/L (21-32); CREATININE 0.5 mg/dL (0.6-1.3); POTASSIUM 4.3 mmol/L (3.5-5.1)
[2022-01-15 10:17] LABS: MAGNESIUM 1.8 mg/dL (1.8-2.4); PHOSPHORUS 3.3 mg/dL (2.5-4.9)
[2022-01-15 10:19] LABS: BASOPHILS % (AUTO) 0.2 % (0.0-2.0); EOSINOPHILS # (AUTO) 0.1 K/uL (0-0.4); EOSINOPHILS % (AUTO) 1.1 % (0.0-4.0); LYMPHOCYTES % (AUTO) 7.6 % (20.5-51.1); MEAN CORPUSCULAR HEMOGLOBIN 28 pg (27-31); MEAN CORPUSCULAR HGB CONC 32 g/dL (33-37); MEAN CORPUSCULAR VOLUME 85.5 fL (80-94); MONOCYTES # (AUTO) 0.6 K/uL (0.8-1.0); MONOCYTES % (AUTO) 4.9 % (1.7-9.3); NEUTROPHILS % (AUTO) 86.2 % (42.2-75.2); PLATELET COUNT (AUTO) 360 K/uL (140-450); RED BLOOD CELL COUNT(AUTO) 2.46 MIL/uL (4.20-5.40); RED CELL DISTRIBUTION WIDTH 17.3 % (11.6-13.7); WHITE BLOOD COUNT (AUTO) 12.7 K/uL (4.8-10.8)
[2022-01-15 10:34] LABS: HEMOGLOBIN 6.7 g/dL (12.0-16.0)
--- NOTE | 2022-01-15 10:46 | NUR ---
STABLE EQUAL CHEST RISE DEEP TRACHEAL SUCTION FOR LARGE THICK GREEN SECRETIONS AIRWAY PATENT
--- NOTE | 2022-01-15 12:00 | NUR ---
BLOOD BANK CALLED TO INFORM ME THAT THE BLOOD IS READY. CONSENT IS MISSING FROM THE CHART. ASKED THEM TO CHECK IF THE CONSENT IS AT THE BLOOD BANK BECAUSE THE PATIENT RECEIVED BLOOD ON 01/11/22. WILL WAIT FOR CALL BACK FROM LAB.
[2022-01-15] MEDS: NON ADHERENT DRESSING TP SCH (12:35)
[2022-01-15] MEDS: SKINTEGRITY HYDROGEL TP SCH (12:36)
--- NOTE | 2022-01-15 13:22 | NUR ---
NO APPARENT DISTRESS NOTED GOOD CHEST RISE DEEP TRACHEAL SUCTION FOR LARGE SEMI THICK TO THIN GREEN SECRETIONS AIRWAY PATENT
--- NOTE | 2022-01-15 15:15 | NUR ---
BLOOD TRANSFUSION STARTED. VERIFIED BY SECOND RN, LATOSHA. PT IS STABLE RIGHT NOW. VS ARE STABLE. TRACH TO VENT WITH BREATHING UNLABORED. WILL CONTINUE TO MONITOR PT CLOSELY.
--- NOTE | 2022-01-15 16:20 | NUR ---
NO DISTRESS NOTED GOOD CHEST RISE DEEP TRACHEAL SUCTION FOR LARGE THICK GREEN SECRETIONS AIRWAY PATENT
--- NOTE | 2022-01-15 18:39 | NUR ---
BLOOD TRANSFUSION STILL INFUSING. PT WAS CHANGED AND REPOSITIONED. ANOTHER BM NOTED. LIQUID AND BROWN IN COLOR. PT IS STABLE. NO RESPIRATORY DISTRESS. WILL MONITOR.
--- NOTE | 2022-01-15 19:09 | NUR ---
ENDORSED PT TO LINER HELPER NURSE FOR CONTINUITY OF CARE. PT IS STABLE. PLAN OF CARE DISCUSSED. BLOOD TRANSFUSION JUST FINISHED INFUSING, LINE IS BEING FLUSHED WITH NS. WILL ENDORSE FERRLECIT MEDICATION ADMINISTRATION TO LINER HELPER NURSE. Addendum: 01/15/22 at 1910 by Marcella Luciano RN IRON WAS NOT ABLE TO BE ADMINISTERED BLOOD WAS INFUSING.
[2022-01-15] MEDS: SODIUM FERRIC GLUCONATE 125 MG in NACL 0.9% 100 ML IV SCH (20:37)
[2022-01-15] MEDS: ATORVASTATIN 20 MG TAB GT SCH (20:57)
[2022-01-15] MEDS: FAMOTIDINE 20 MG TAB PO SCH (20:58)
[2022-01-16] VITALS: BP 96/49
[2022-01-16] MEDS: HYDRAGUARD CREAM TP SCH ×2 (01:45→12:07)
[2022-01-16 04:00] VITALS: BP 115/69
[2022-01-16] MEDS: VALPROIC ACID 250 MG/5 ML UDC GT SCH ×2 (05:36→12:06)
[2022-01-16] MEDS: LEVOTHYROXINE 0.025 MG TAB GT SCH (05:36)
[2022-01-16] MEDS: MEROPENEM 1,000 MG in NACL 0.9% 50 ML IV SCH ×2 (05:36→12:07)
--- NOTE | 2022-01-16 07:20 | NUR ---
RECEIVED BEDSIDE REPORT FROM CW OPERATOR NURSE FOR CONTINUITY OF CARE. PT IS APHASIC, NONVERBAL. TRACH TO VENT WITH BREATHING UNLABORED. O2 SAT IS 98%. SR ON TELE MONITOR. G TUBE IN PLACE INFUSING FEEDING ORDERED. WEEKS CATH IN PLACE. SACRAL WOUND WITH DRY DRESSING. RIGHT HEEL DTI WITH DRESSING INTACT. IVS IN THE LEFT FA AND HAND. PT IS STABLE. PLAN OF CARE DISCUSSED.
[2022-01-16 07:38] LABS: BASOPHILS % (AUTO) 0.3 % (0.0-2.0); EOSINOPHILS # (AUTO) 0.2 K/uL (0-0.4); EOSINOPHILS % (AUTO) 1.2 % (0.0-4.0); HEMATOCRIT 26.5 % (36-48); HEMOGLOBIN 8.7 g/dL (12.0-16.0); LYMPHOCYTES # (AUTO) 0.9 K/uL (2.5-16.5); LYMPHOCYTES % (AUTO) 6.1 % (20.5-51.1); MEAN CORPUSCULAR HEMOGLOBIN 28 pg (27-31); MEAN CORPUSCULAR HGB CONC 33 g/dL (33-37); MEAN CORPUSCULAR VOLUME 84.9 fL (80-94); MONOCYTES # (AUTO) 0.6 K/uL (0.8-1.0); NEUTROPHILS # (AUTO) 12.6 K/uL (1.8-7.7); NEUTROPHILS % (AUTO) 88.4 % (42.2-75.2); PLATELET COUNT (AUTO) 353 K/uL (140-450); RED BLOOD CELL COUNT(AUTO) 3.13 MIL/uL (4.20-5.40); RED CELL DISTRIBUTION WIDTH 16.7 % (11.6-13.7); WHITE BLOOD COUNT (AUTO) 14.2 K/uL (4.8-10.8)
[2022-01-16 08:00] VITALS: BP 113/54
[2022-01-16] MEDS: ALBUTEROL SULFATE/IPRATROPIU 3 ML SOL IH SCH (08:05)
[2022-01-16] MEDS: NACL 0.9% 1,000 ML IV SCH (08:52)
[2022-01-16] MEDS: LACTULOSE 20 GM/30 ML UDC GT SCH (08:55)
[2022-01-16] MEDS: ASCORBIC ACID 500 MG/5 ML ORASYR GT SCH (08:55)
[2022-01-16] MEDS: LACTOBACILLUS RHAMNOSUS GG 1 EACH CAP GT SCH (08:56)
[2022-01-16] MEDS: DIGOXIN 0.125 MG TAB GT SCH (08:56)
[2022-01-16] MEDS: GABAPENTIN 100 MG CAP GT SCH ×2 (08:56→12:06)
[2022-01-16] MEDS: FAMOTIDINE 20 MG TAB PO SCH (08:57)
[2022-01-16] MEDS: BENZTROPINE 1 MG TAB GT SCH (08:57)
[2022-01-16] MEDS: FOLIC ACID 1 MG TAB GT SCH (08:57)
[2022-01-16] MEDS: INSULIN LANTUS 100 UNITS/ML 10 ML VIAL SUBQ SCH (08:58)
[2022-01-16] MEDS ORDERED: FUROSEMIDE 40 MG TAB GT SCH (09:00)
[2022-01-16 09:03] LABS: ANION GAP 12.1 (8-16); CARBON DIOXIDE 21.1 mmol/L (21-32); CREATININE 0.5 mg/dL (0.6-1.3); POTASSIUM 4.2 mmol/L (3.5-5.1)
[2022-01-16] MEDS: BLOOD GLUCOSE MONITORING 1 DEV DEV FS SCH ×2 (09:03→12:25)
--- NOTE | 2022-01-16 10:00 | NUR ---
PT WAS CHANGED AND REPOSITIONED. BED BATH GIVEN. NEW DIAPER PLACED. WEEKS CATH IN PLACE. IVS ARE INTACT AND PATENT. G TUBE IS INFUSING FEEDING WITH RESIDUAL LESS THAN 10 ML. PT IS STABLE. NO RESP DISTRESS ON TRACH TO VENT.
[2022-01-16 10:20] LABS: FERRITIN 1187 ng/mL (15 - 150); TRANSFERRIN 95 mg/dL (200 - 370)
[2022-01-16] MEDS ORDERED: IV Meropenam IV (10:25)
[2022-01-16 12:00] VITALS: BP 97/58
--- NOTE | 2022-01-16 12:00 | NUR ---
WOUND PICTURES TAKEN AND WOUNDS ASSESSED. NEW DRESSINGS APPLIED PER PROTOCOL. PT HAD A LARGE BM, LIQUID IN CONSISTENCY. PT TOLERATED MOVEMENT WELL.
[2022-01-16] MEDS: NON ADHERENT DRESSING TP SCH (12:07)
[2022-01-16] MEDS: SKINTEGRITY HYDROGEL TP SCH (12:07)
[2022-01-16 13:29] VITALS: BP 97/58
--- NOTE | 2022-01-16 14:10 | NUR ---
PT WAS DISCHARGED FROM THE HOSPITAL. PICKED UP BY TRANSPORT WITH [facility]. TRANSFERRED TO [facility] ON TRACH TO [facility]. G TUBE IN PLACE. WEEKS CATH IN PLACE. BOTH IVS IN THE LEFT UE IN PLACE PER FACILITY FOR CONTINUING ABX. REPORT WAS GIVEN TO ANAYELI AT [facility]. CALLED BROTHER HOMERO AND INFORMED HIM OF DEPARTURE. VS ARE STABLE. PT IS STABLE. NO RESP DISTRESS NOTED. ID BANDS REMOVED. PT DISCHARGED.
[2022-01-16 15:06] LABS: FOLIC ACID > 20.00 ng/mL (>3.0)
== END 2022-01-16 14:35 | DRG 720 ==
LOC: MED 22:09 → MTU 01-09 02:49
PROVIDERS: ADMIT Hospitalist; ATTEND Hospitalist
PROC: 5A1955Z Respiratory Ventilation, Greater than 96 Consecutive Hours (ICD-10-PCS; principal; 2022-01-09)
PROC: 0JB70ZZ Excision of Back Subcutaneous Tissue and Fascia, Open Approach (ICD-10-PCS; 2022-01-11)
PROC: 30233N1 Transfusion of Nonautologous Red Blood Cells into Peripheral Vein, Percutaneous Approach (ICD-10-PCS; 2022-01-11)
DX: A41.9 Sepsis, unspecified organism (principal); J96.21 Acute and chronic respiratory failure with hypoxia; J69.0 Pneumonitis due to inhalation of food and vomit; G93.40 Encephalopathy, unspecified; L89.154 Pressure ulcer of sacral region, stage 4; J95.851 Ventilator associated pneumonia; E43 Unspecified severe protein-calorie malnutrition; G40.909 Epilepsy, unspecified, not intractable, without status epilepticus; I10 Essential (primary) hypertension; I96 Gangrene, not elsewhere classified; D63.8 Anemia in other chronic diseases classified elsewhere; T83.518A Infection and inflammatory reaction due to other urinary catheter, initial encounter; I48.91 Unspecified atrial fibrillation; Z20.822 Contact with and (suspected) exposure to COVID-19; N39.0 Urinary tract infection, site not specified; R16.2 Hepatomegaly with splenomegaly, not elsewhere classified; I70.0 Atherosclerosis of aorta; E87.1 Hypo-osmolality and hyponatremia; R74.01 Elevation of levels of liver transaminase levels; Y83.8 Other surgical procedures as the cause of abnormal reaction of the patient, or of later complication, without mention of misadventure at the time of the procedure; K57.30 Diverticulosis of large intestine without perforation or abscess without bleeding; K80.20 Calculus of gallbladder without cholecystitis without obstruction; M86.8X8 Other osteomyelitis, other site; J96.22 Acute and chronic respiratory failure with hypercapnia; E11.52 Type 2 diabetes mellitus with diabetic peripheral angiopathy with gangrene; Z93.0 Tracheostomy status; Z99.11 Dependence on respirator [ventilator] status; Y92.89 Other specified places as the place of occurrence of the external cause; Z88.1 Allergy status to other antibiotic agents; Z93.1 Gastrostomy status; Z79.01 Long term (current) use of anticoagulants; Z79.4 Long term (current) use of insulin; Z79.899 Other long term (current) drug therapy; Z88.8 Allergy status to other drugs, medicaments and biological substances; Z68.22 Body mass index [BMI] 22.0-22.9, adult
CPT/HCPCS: 36415; 36600; 71045; 76705; 80048; 80053; 80162; 80299; 81001; 82272; 82550; 82553; 82607; 82728; 82746; 82803; 82948; 83540; 83605; 83735; 84100; 84443; 84484; 85025; 85045; 85610; 85730; 86886; 86900; 86901; 86920; 87040; 87070; 87081; 87086; 87205; 93005; 94003; 94640; 96361; 96365; 96368; 99291; A6248; C9113; J1815; J2001; J2185; J2543; J2916; J3370; J3480; J7030; J7060; P9016; Q0092; Q9967